=== PATIENT | female | born 2000 | race Caucasian/White ===

== ENCOUNTER 2025-03-10 07:33 | Emergency (ER) | payer BC, SELFPAY ==
[2025-03-10 07:35] VITALS: BP 135/80
[2025-03-10 07:37] VITALS: BP 135/80
[2025-03-10 08:00] VITALS: BP 131/79
--- NOTE | 2025-03-10 08:02 | ED.GENMED ---
History of Present Illness
General
Chief Complaint: Seizure
Source: patient and ambulance crew
Time Seen by Provider: 03/10/25 07:35
History of Present Illness
History of Present Illness:
25-year-old female with past medical history of seizure disorder, had been taken off of her Keppra medication by her neurologist in [place] a little over 1 year ago, presenting to the emergency department for evaluation after she had a witnessed
seizure at her gym earlier this morning. Patient states that she remembers doing curls and then next thing she knew she woke up to people standing over her. EMS reports that patient was postictal at time of their arrival, fingerstick glucose 87.
Patient states that she did feel little drowsy this morning but otherwise has been in her usual state of health. Last night did have some alcohol intake due to celebration of her recent home from living in [place]/going to college there. Patient
denies any fevers, chills, rigors, back pain, abdominal pain. There was noted left-sided frontal scalp trauma and patient does report about a 4 out of 10 headache. No other concerns presently.
Past History
Past History
ED Past Medical History: Seizures
ED Past Surgical History: Tonsilectomy and Other (breast Aug)
Social History
Tobacco: Non-smoker
Alcohol: Occasional
Drug: None
Personal: Single
Living: with family
Employment: Employed
Review of Systems
Review of Systems
All Other Systems: ROS reviewed and negative except as documented in HPI and ROS
Phy Exam
Physical Exam
Physical Exam:
GENERAL: Alert , in no apparent distress
HEAD: Left-sided frontal scalp contusion
EYE: pupils equal and reactive, 4 mm bilateral, EOMI
NECK: Supple, no midline tenderness
ENT: o/p clr, mmm. No tongue or intraoral laceration
CARDIAC: Tachycardic rate and rhythm, no murmur
LUNGS: Clear breath sounds bilaterally, no acute respiratory distress, no wheezes/rales/rhonchi
NEUROLOGICAL: Alert and oriented, no focal neuro deficits, moves all extremities, answers questions appropriately
SKIN: Warm and dry, skin intact.
MUSCULOSKELETAL: No edema, well perfused.
PSYCH: Normal and appropriate interaction.
Scores
Heart Failure Risk
Heart Failure Risk Score: Not Applicable
Heart Score for Chest Pain Patients
STEMI patient?: Not applicable
Withdrawal Assessment of Alcohol
Withdrawal Assessment Completed?: Not applicable
Course
Orders/Labs/Results
Orders:
Orders
03/10/25 07:42
Levetiracetam Injectable [Keppra] 1,000 mg IV NOW STA
03/10/25 07:43
Test Result ONCE
03/10/25 07:51
CT Head W/o Iv Contrast Urgent
Comment:
Reason For Exam: seizure, left frontal scalp trauma
03/10/25 07:52
Alcohol Urgent
CPK [Creatine Phosphokinase] Urgent
Complete Blood Count/With Diff Urgent
Comprehensive Metabolic Panel Urgent
HCG, Serum Qualitative Screen Urgent
Magnesium Urgent
03/10/25 08:19
Fosphenytoin 50 mg PE/ml [Cerebyx] 1,400 mg 0.9% Sodium Chloride 100 ml [Nss] 100 ml IV NOW
03/10/25 09:48
Lacosamide [Vimpat] 50 mg PO NOW STA
Abnormal Lab Results
03/10/25
07:52
MPV 10.5 H fL
(7.4-10.4)
Chloride 108 H mmol/L
(98-107)
Carbon Dioxide 19 L mmol/L
(22-30)
Albumin 5.1 H g/dl
(3.5-5.0)
03/10/25 07:52
03/10/25 07:52
Vital Signs
Initial and Last Documented VS:
Initial Vital Signs
Temp Pulse Resp BP Pulse Ox
98.7 F 114 16 135/80 97
03/10/25 07:35 03/10/25 07:35 03/10/25 07:35 03/10/25 07:35 03/10/25 07:35
Last Documented Vital Signs
Temp Pulse Resp BP Pulse Ox
98.2 F 100 16 119/67 98
03/10/25 10:13 03/10/25 10:13 03/10/25 10:13 03/10/25 10:13 03/10/25 10:13
MDM/Problems Addressed
Differential Diagnosis Includes:
Breakthrough seizure, alcohol use/withdrawal, electrolyte derangement, concussion, forehead contusion, intracranial bleeding
MDM/Problems Addressed:
25-year-old female presenting to the ER for evaluation after she reportedly had a seizure at the gym this morning witnessed by multiple gym goers. EMS reported patient postictal and route. Patient remains tachycardic here however no focal
neurologic deficits on my exam. Patient with history of seizure disorder, has been seizure-free for well over 1 year and has been off medications for well over 1 year. Patient reportedly was on Keppra in the past. Labs, CT imaging ordered.
Patient will likely need license revoked given her known history of seizure disorder and a breakthrough seizure. Will likely need neurology follow-up here given she does not have an established
Chronic conditions affecting care: Other (Seizure disorder)
Acute Exacerbation and/or Progression of Chronic Illness: Other (Seizure)
*Radiology
Radiology exam reviewed: radiology read reviewed
*Pulse Oximetry
Patient hypoxic: no
*Bunker Worker Interpretation
Rate: tachycardiac
Rhythm: sinus
*Critical Care Note
Total Time (30-74mins, 75-104mins- exclusive of procedures): Not Applicable
Patient Management
Discussion with other providers: Pressure Welder
Escalation/DeEscalation of care consider admission/obs:
March 10, 2025, 8 AM: Case discussed with neurology who agrees with workup plan. Patient does not want to go back onto Keppra due to side effects from the medication, neurology recommending 15 mg/kg IV bolus of fosphenytoin now and 300 mg Dilantin
at nighttime. I did verify with patient that she would be able to get follow-up blood within the next 3 days with primary care provider.
March 10, 2025 9AM: Case was rediscussed with neurology and pharmacy and given that the patient has had dental issues with Keppra in the past we were concerned that starting the patient on phenytoin would lead to similar issues as well as given
patient is female and of childbearing age or concern for any possible toxicity. Neurology was okay with us starting Vimpat 50 mg twice daily. I called patient's pharmacy and confirmed with them that this would be covered by the patient's
insurance and did not need prior authorization. Patient remained stable, seizure-free and in no acute distress. I provided them with information for neurology to follow-up with as an outpatient and patient also stated she would be able to
follow-up with primary care provider. Patient is aware of return precautions to the ER. Otherwise stable for discharge home.
ED Attending Note
-
Portions of this chart may have been created with voice recognition software.� Occasional wrong word or��sound alike� substitutions may have occurred due to the inherent limitations of voice recognition software.
Discharge Plan
Departure
Patient Disposition: Home (Routine Discharge)
Date of Disposition: 03/10/25
Time of Disposition: 09:58
Patient with high blood pressure during this ER visit?: No
Discharge Problem:
Seizure
Instructions: Seizures, Adult (DC)
Prescriptions:
New
lacosamide [Vimpat] 50 mg tablet
50 mg PO BID Qty: 60 0RF
No Action
prednisone 20 MG tablet
40 mg PO DAILY Qty: 8 0RF
famotidine 20 MG tablet
20 mg PO DAILY Qty: 10 0RF
diphenhydramine HCl [Banophen] 25 MG capsule
25 mg PO Q4HPRN PRN (Reason: allergic reaction) Qty: 20 0RF
epinephrine [EpiPen] 0.3 MG/0.3/SYRINGE auto-injector
0.3 mg IM PRN PRN (Reason: difficulty breathing) Qty: 1 0RF
albuterol sulfate [Albuterol Sulfate HFA] 18 GM HFA aerosol inhaler
18 gm inhalation Q4 Qty: 1 0RF
Referrals:
Wilson Johnson MD [Active] - (Neuro)
NONE,* [Family Provider] -
Interventions
Interventions:
*Risk Screen - Suicide Last Done: 03/10/25 07:35
*General Assessment Last Done: 03/10/25 07:35
*Neglect/Abuse Screening Last Done: 03/10/25 07:35
*ED- Fall Risk Assessment Last Done: 03/10/25 08:08
*ED COVID-19 Vaccine History Last Done: 03/10/25 07:35
*Nursing Disposition Last Done: 03/10/25 10:13
ED- Cardiac Assessment Last Done: 03/10/25 08:08
ED- Neurological Assessment Last Done: 03/10/25 08:08
ED- Pulmonary Assessment Last Done: 03/10/25 08:08
Discharge Date and Time
Discharge Date/Time: 03/10/25 10:10
Print Language: MAORI
[2025-03-10 08:12] LABS: % Basophils 0.9 % (0-2); % Eosinophils 0.5 % (0-6); % Immature Granulocytes 0.3 % (0-0.5); % Lymphocytes 42.4 % (20.5-51.1); % Monocytes 6.1 % (1.7-9.3); % Neutrophils 49.8 % (42.2-75.2); Absolute Basophils 0.1 10^3/uL (0-0.2); Absolute Lymphocytes 3.3 10^3/uL (1.2-3.4); Absolute Monocytes 0.5 10^3/uL (0.1-0.6); Absolute Neutrophils 3.8 10^3/uL (1.4-6.5); Hematocrit 44.7 % (37.0-47.0); Hemoglobin 15.1 g/dL (12.0-16.0); Mean Corp Hgb Conc. 33.8 g/dL (33.0-37.0); Mean Corpuscular Hgb 30.9 pg (27.0-31.0); Mean Corpuscular Volume 91.4 fL (81.0-99.0); Mean Platelet Volume 10.5 fL (7.4-10.4); Nucleated Red Blood Cells % 0 %; Platelet Count 225 10^3/uL (130-400); Red Blood Cell Count 4.89 10^6/uL (4.20-5.40); Red Cell Dist. Width 12.5 % (11.5-14.5); White Blood Cell Count 7.7 10^3/uL (4.8-10.8)
[2025-03-10 08:16] LABS: ALT (SGPT) 24 U/L (0-35); AST (SGOT) 24 U/L (14-36); Albumin 5.1 g/dl (3.5-5.0); Alkaline Phosphatase 40 U/L (38-126); Blood Urea Nitrogen 10 mg/dl (7-17); Calcium 9.5 mg/dl (8.4-10.2); Carbon Dioxide 19 mmol/L (22-30); Chloride 108 mmol/L (98-107); Estimated Creatinine Clearance > 125 ml/min; Glucose 96 mg/dl (70-99); Magnesium 1.9 mg/dl (1.6-2.3); Potassium 4.2 mmol/L (3.5-5.1); Sodium 144 mmol/L (135-145); Total Bilirubin 0.8 mg/dl (0.2-1.3); Total Protein 7.5 g/dl (6.3-8.2); eGFR > 60.00
[2025-03-10 08:22] LABS: HCG, Serum Qualitative Screen Negative
[2025-03-10 08:30] LABS: Alcohol 12 mg/dl; Creatine Phosphokinase 91 U/L (30-135)
[2025-03-10 09:00] VITALS: BP 129/80; BP 132/68
[2025-03-10] MEDS: VIMPAT 50 MG PO (09:59)
[2025-03-10 10:00] VITALS: BP 119/97
[2025-03-10 10:13] VITALS: BP 119/67
--- NOTE | 2025-03-10 10:13 | EDRN ---
Reviewed discharge instructions with patient. Verbalized understanding. Ambulated with steady gait to the lobby.
== END 2025-03-10 10:10 | disposition home or self-care (01) ==
LOC: EMR 07:33
PROVIDERS: Physician Assistant Medical; EMERGENCY PHYSICIAN Emergency Medicine
DX: G40.909 Epilepsy, unspecified, not intractable, without status epilepticus (principal); Z79.899 Other long term (current) drug therapy
CPT/HCPCS: 99284; 70450; 80053; 82077; 82550; 83735; 84703; 85025

== ENCOUNTER 2025-06-28 09:19 | Emergency (ER) | payer BC, SELFPAY ==
[2025-06-28 09:29] VITALS: BP 134/86
[2025-06-28 09:49] LABS: Hematocrit 43.3 % (37.0-47.0); Hemoglobin 14.5 g/dL (12.0-16.0); Mean Corp Hgb Conc. 33.5 g/dL (33.0-37.0); Mean Corpuscular Volume 92.5 fL (81.0-99.0); Nucleated Red Blood Cells % 0 %; Platelet Count 209 10^3/uL (130-400); Red Cell Dist. Width 11.7 % (11.5-14.5)
[2025-06-28 10:14] LABS: HCG, Serum Qualitative Screen Negative
[2025-06-28 10:18] LABS: ALT (SGPT) 19 U/L (0-35); AST (SGOT) 21 U/L (14-36); Albumin 4.8 g/dl (3.5-5.0); Alkaline Phosphatase 43 U/L (38-126); Blood Urea Nitrogen 16 mg/dl (7-17); Calcium 9.8 mg/dl (8.4-10.2); Carbon Dioxide 24 mmol/L (22-30); Chloride 108 mmol/L (98-107); Glucose 97 mg/dl (70-99); Potassium 4.7 mmol/L (3.5-5.1); Sodium 140 mmol/L (135-145); Total Protein 7.4 g/dl (6.3-8.2); eGFR > 60.00
[2025-06-28 11:51] VITALS: BP 125/63
[2025-06-28 11:54] VITALS: BP 125/63; BMI 31.1
[2025-06-28 12:00] VITALS: BP 112/63
--- NOTE | 2025-06-28 12:11 | ED.GENMED ---
History of Present Illness
<Tania Cha DO, Resident - Last Filed: 06/28/25 15:47>
General
Chief Complaint: Seizure
Source: patient
Time Seen by Provider: 06/28/25 11:41
History of Present Illness
History of Present Illness:
Patient is a 25-year-old female with past medical history of seizures presenting status post seizure. Patient had a seizure earlier this morning walking around a horse barn. Seizure was unwitnessed. Seizure lasted under 1 minute. Patient
experienced urinary incontinence, and now has generalized muscle aches, nausea and headache. Patient has abrasions on left cheek left elbow and hands. Not actively bleeding. Patient denies facial pain. Patient has had rare rare and occasional
seizures for the last 4 years, most recently in February. She now sees neurology at [place], and was put on lacosamide 50 mg in February. Patient's dose elevated to 100 mg in May. Based on blood work patient's dose was elevated again recently to 150
mg. First dose of 150 mg was last night.
Past History
<Tania Cha DO, Resident - Last Filed: 06/28/25 15:47>
Past History
ED Past Medical History: Seizures
ED Past Surgical History: Tonsilectomy and Other (breast Aug)
Social History
Tobacco: Non-smoker
Alcohol: Occasional
Drug: None
Personal: Single
Living: with family
Employment: Employed
Review of Systems
<Tania Cha DO, Resident - Last Filed: 06/28/25 15:47>
Review of Systems
Allergies reviewed?: Yes
Constitutional: Reports no symptoms
EENT: Reports no symptoms
Respiratory: Reports no symptoms
Cardiac: Reports no symptoms
Phy Exam
<Tania Cha DO, Resident - Last Filed: 06/28/25 15:47>
General Physical Exam
General Presentation: no apparent distress
General age: appears stated age
General Skin: warm and dry
General Habitus: normal
General Mental: alert
Cardiovascular Exam
Cardiovascular Exam: regular rate/rhythm
Heart Sounds: normal
Pulmonary Exam
Pulmonary Exam: lungs clear, no respiratory distress, no crackles and no wheezing
Gastrointestinal Exam
Gastrointestinal Exam: normal bowel sounds
Neurological Exam
Neurological Exam: alert and oriented x3
Skin Exam
Skin Exam: normal color, warm/dry and other (Abrasions noted on patient's left cheek left elbow and bilateral hands. Not actively bleeding.)
Psychiatric Exam
Psychiatric Exam: normal mood/affect
Course
<Tania Cha DO, Resident - Last Filed: 06/28/25 15:47>
Orders/Labs/Results
Orders:
Orders
06/28/25 09:35
Test Result ONCE
06/28/25 09:42
Complete Blood Count/With Diff Urgent
Comprehensive Metabolic Panel Urgent
HCG, Serum Qualitative Screen Urgent
Comment: Notify provider if positive test present
Abnormal Lab Results
06/28/25
09:42
Chloride 108 H mmol/L
(98-107)
06/28/25 09:42
06/28/25 09:42
Vital Signs
Initial and Last Documented VS:
Initial Vital Signs
Temp Pulse Resp BP Pulse Ox
98.5 F 93 16 134/86 98
06/28/25 09:29 06/28/25 09:29 06/28/25 09:29 06/28/25 09:29 06/28/25 09:29
Last Documented Vital Signs
Temp Pulse Resp BP Pulse Ox
98.5 F 79 17 112/63 99
06/28/25 09:29 06/28/25 12:00 06/28/25 12:00 06/28/25 12:00 06/28/25 12:18
<Janeth Harman DO - Last Filed: 06/28/25 13:46>
Orders/Labs/Results
Orders:
Orders
06/28/25 09:35
Test Result ONCE
06/28/25 09:42
Complete Blood Count/With Diff Urgent
Comprehensive Metabolic Panel Urgent
HCG, Serum Qualitative Screen Urgent
Comment: Notify provider if positive test present
Abnormal Lab Results
06/28/25
09:42
Chloride 108 H mmol/L
(98-107)
06/28/25 09:42
06/28/25 09:42
Vital Signs
Initial and Last Documented VS:
Initial Vital Signs
Temp Pulse Resp BP Pulse Ox
98.5 F 93 16 134/86 98
06/28/25 09:29 06/28/25 09:29 06/28/25 09:29 06/28/25 09:29 06/28/25 09:29
Last Documented Vital Signs
Temp Pulse Resp BP Pulse Ox
98.5 F 79 17 112/63 99
06/28/25 09:29 06/28/25 12:00 06/28/25 12:00 06/28/25 12:00 06/28/25 12:18
<Tania Cha DO, Resident - Last Filed: 06/28/25 15:47>
MDM/Problems Addressed
Differential Diagnosis Includes:
epilepsy
MDM/Problems Addressed:
Do not feel it necessary to do CT face. Abrasions not actively bleeding. Will consult with patient's neurologist Dr. Tony regarding starting the patient on the 200 mg dosage of lacosamide today.
13:50 - Spoke with Dr. Tony via TT. She recommends starting the 200mg BID dose today. Patient has enough of her lacosamide to start 200 mg BID until her appointment with Dr. Tony on 07/05. test negative. Patient ready for discharge
<Tania Cha DO, Resident - Last Filed: 06/28/25 15:47>
*Pulse Oximetry
SaO2: 99
Oxygen Mode of Delivery: Room air
Patient hypoxic: no
*Critical Care Note
Total Time (30-74mins, 75-104mins- exclusive of procedures): Not Applicable
ED Attending Note
<Tania Cha DO, Resident - Last Filed: 06/28/25 15:47>
-
Portions of this chart may have been created with voice recognition software.� Occasional wrong word or��sound alike� substitutions may have occurred due to the inherent limitations of voice recognition software.
<Janeth Harman DO - Last Filed: 06/28/25 13:46>
ED Attending Note
Patient seen and examined by attending physician: Yes
I performed the substantive portion of visit, reviewed & personally made and approve the management plan that is documented in note by myself or YU.: Yes
I performed a history and physical exam of patient and discussed management with resident, I reviewed resident's note and agree with documented findings and plan of care.: Yes
ED Attending Note:
25-year-old female with history of seizure disorder presenting to the emergency department for seizure prior to arrival. Patient reports that she has been having seizures for the past several years, however been increasing in frequency in the past
year. Last seizure was in February. Patient is on lacosamide, had been on 50 mg twice daily. In May was 100 twice daily, however levels were still low so recently increased to 150 mg twice daily with first dose being last evening. Patient had
seizure prior to arrival, unwitnessed. Fall to the ground and strike her face, left elbow, hands, left knee. Urinary incontinence. Does note mild headache after her seizure and some generalized fatigue. Denies any recent fever.
Vital signs on arrival are normal. On exam patient is resting comfortably, alert, oriented. Mild signs of trauma with abrasions to the left side of the face, left elbow, left knee, fingers. Range of motion intact to all extremities without
significant deformity or swelling. No midline cervical neck tenderness. No additional focal neurologic deficits on exam. Ultimately suspect breakthrough seizure in a patient with known seizure disorder. Patient's labs are unremarkable,
including negative . Will try and reach out to patient's neurologist, Dr. Tony, however recent adjustment was just made last night, so likely recommendation to remain on the 150 mg twice daily. Do not feel patient requires any advanced
workup or imaging at this time.
13:45 -did discuss with neurologist, recommending 200 mg twice daily with outpatient follow-up. Patient has an appointment on the . Feel stable for discharge. Return precautions discussed
Discharge Plan
Departure
Patient Disposition: Home (Routine Discharge)
Date of Disposition: 06/28/25
Time of Disposition: 13:57
Patient with high blood pressure during this ER visit?: Yes
Discharge Problem:
Epilepsy
Instructions: Seizures, Adult (DC), BLOOD PRESSURE
Prescriptions:
No Action
prednisone 20 MG tablet
40 mg PO DAILY Qty: 8 0RF
famotidine 20 MG tablet
20 mg PO DAILY Qty: 10 0RF
diphenhydramine HCl [Banophen] 25 MG capsule
25 mg PO Q4HPRN PRN (Reason: allergic reaction) Qty: 20 0RF
epinephrine [EpiPen] 0.3 MG/0.3/SYRINGE auto-injector
0.3 mg IM PRN PRN (Reason: difficulty breathing) Qty: 1 0RF
albuterol sulfate [Albuterol Sulfate HFA] 18 GM HFA aerosol inhaler
18 gm inhalation Q4 Qty: 1 0RF
lacosamide [Vimpat] 50 mg tablet
50 mg PO BID Qty: 60 0RF
Referrals:
Dalton Byrd MD [Family Provider, Family Practice]
Matias Tony MD [Active, Neurology]
Activity Restrictions/Additional Instructions:
We spoke with your neurologist Dr. Tony who recommends starting lacosamide 200 mg BID dosage. Please follow-up with her at your 07/05 appointment. Please return to the ED with any further seizures or worsening symptoms prior to your follow-up
appointment.
Interventions
Interventions:
*Risk Screen - Suicide Last Done: 06/28/25 09:29
*General Assessment Last Done: 06/28/25 09:29
*Neglect/Abuse Screening Last Done: 06/28/25 09:29
*ED- Fall Risk Assessment Last Done: 06/28/25 14:19
*ED COVID-19 Vaccine History Last Done: 06/28/25 11:54
*Nursing Disposition Last Done: 06/28/25 14:19
ED- Cardiac Assessment Last Done: 06/28/25 11:54
ED- Neurological Assessment Last Done: 06/28/25 11:54
ED- Pulmonary Assessment Last Done: 06/28/25 11:54
Discharge Date and Time
Discharge Date/Time: 06/28/25 14:19
Print Language: ITALIAN
== END 2025-06-28 14:19 | disposition home or self-care (01) ==
LOC: EMR 09:19
PROVIDERS: EMERGENCY PHYSICIAN Student in an Organized Health Care Education/Training Program; FAMILY PHYSICIAN Family Medicine
DX: G40.909 Epilepsy, unspecified, not intractable, without status epilepticus (principal); S00.81XA Abrasion of other part of head, initial encounter; S50.312A Abrasion of left elbow, initial encounter; S60.512A Abrasion of left hand, initial encounter; S60.511A Abrasion of right hand, initial encounter; W19.XXXA Unspecified fall, initial encounter
CPT/HCPCS: 99283; 80053; 84703; 85025

== ENCOUNTER → 2025-08-08 10:51 | Outpatient (REF) | payer BC, SELFPAY | LOC: MRI 3T 10:51 | PROVIDERS: ATTENDING PHYSICIAN Specialist; FAMILY PHYSICIAN Family Medicine | DX: G40.209 Localization-related (focal) (partial) symptomatic epilepsy and epileptic syndromes with complex partial seizures, not intractable, without status epilepticus (principal) | CPT/HCPCS: 70553; A9575 ==

== ENCOUNTER 2025-08-27 10:12 | Emergency (ER) | payer BC, SELFPAY ==
[2025-08-27 10:15] VITALS: BP 130/81
[2025-08-27 10:17] VITALS: BP 130/81
[2025-08-27 10:22] VITALS: BMI 28.9
[2025-08-27 10:33] LABS: Hematocrit 42.2 % (37.0-47.0); Hemoglobin 14.0 g/dL (12.0-16.0); Mean Corp Hgb Conc. 33.2 g/dL (33.0-37.0); Mean Corpuscular Volume 92.7 fL (81.0-99.0); Nucleated Red Blood Cells % 0 %; Platelet Count 194 10^3/uL (130-400); Red Cell Dist. Width 11.9 % (11.5-14.5)
[2025-08-27 10:47] LABS: HCG, Serum Qualitative Screen Negative
[2025-08-27 10:54] LABS: ALT (SGPT) 18 U/L (0-35); AST (SGOT) 19 U/L (14-36); Albumin 4.5 g/dl (3.5-5.0); Alkaline Phosphatase 50 U/L (38-126); Blood Urea Nitrogen 12 mg/dl (7-17); Calcium 9.3 mg/dl (8.4-10.2); Carbon Dioxide 28 mmol/L (22-30); Chloride 105 mmol/L (98-107); Estimated Creatinine Clearance > 125 ml/min; Glucose 117 mg/dl (70-99); Potassium 5.0 mmol/L (3.5-5.1); Sodium 136 mmol/L (135-145); Total Protein 7.0 g/dl (6.3-8.2); eGFR > 60.00
--- NOTE | 2025-08-27 10:54 | ED.GENMED ---
History of Present Illness
General
Chief Complaint: Seizure
Source: patient and family (Mother)
Exam Limitations: none
Time Seen by Provider: 08/27/25 10:16
History of Present Illness
History of Present Illness:
25-year-old female grand mal seizure while at a car show. Her father somewhat called her and she landed on her father. Complaining of some headaches which is typical after a seizure, left elbow and bilateral knee pain. No neck pain no other
trauma. She is on Vimpat 200 mg twice a day. This has been increased since the summer from 50 twice daily up till this dosing. She is followed by neurology locally and has also been seen at [facility].
Past History
Past History
ED Past Medical History: Seizures
ED Past Surgical History: Tonsilectomy and Other (breast Aug)
Social History
Tobacco: Non-smoker
Alcohol: Occasional
Drug: None
Personal: Single
Living: with family
Employment: Employed
Review of Systems
Review of Systems
All Other Systems: Not applicable
Respiratory: Reports no symptoms
Cardiac: Reports no symptoms
Phy Exam
Physical Exam
Physical Exam:
TRAUMA EXAM:
VITAL SIGNS: Vital signs reviewed, cooperative
DISTRESS: No active disease
EYES: Pupils reactive, no orbital trauma
NOSE: No deformity or epistaxis
FACE AND SCALP: No scalp or facial trauma, external canals no blood
NECK: Supple nontender
BACK: Back nontender, pelvis stable to compression
RESPIRATORY: No distress, breath sounds normal, no tender chest wall
CARDIAC: No murmur, pulses equal and strong
ABDOMEN: Soft nontender bowel sounds normal
SKIN: Abrasions over the left elbow and bilateral patellas
EXTREMITIES: Tenderness over both patellas. Able to straight leg raise. Knee stable. No laxity. Some tenderness over the olecranon. All joints are stable. Distal motor or sensory neurovascular intact.
NEUROLOGICAL: Alert, oriented, no motor deficits
PSYCH: Mood affect normal
Course
Orders/Labs/Results
Orders:
Orders
08/27/25 10:16
Electrocardiogram (*1) Stat
Reason for Study: Other
Other Reason for Exam: neuro symptoms
Cardiac Monitoring- Treatment ONCE
EKG- Treatment ONCE
IV Insert/Care/Rem.- Treatment PRN
Test Result ONCE
08/27/25 10:23
Complete Blood Count/With Diff Urgent
Comprehensive Metabolic Panel Urgent
HCG, Serum Qualitative Screen Urgent
08/27/25 10:53
Elbow, Left [CR Elbow - Left Min 3 Views ] Urgent
Comment:
Reason For Exam: Trauma
Knee, Left 4 or More Views [CR Knee - Left 4 Or More View*] Urgent
Comment:
Reason For Exam: Trauma
Knee, Right 4 or More Views [CR Knee- Right 4 Or More View*] Urgent
Comment:
Reason For Exam: Trauma
08/27/25 10:56
Acetaminophen [Tylenol] 650 mg PO NOW STA
Abnormal Lab Results
08/27/25
10:23
MPV 10.5 H fL
(7.4-10.4)
Glucose 117 H mg/dl
(70-99)
08/27/25 10:23
08/27/25 10:23
Vital Signs
Initial and Last Documented VS:
Initial Vital Signs
Temp Pulse Resp BP Pulse Ox
98.8 F 104 19 130/81 98
08/27/25 10:15 08/27/25 10:15 08/27/25 10:15 08/27/25 10:15 08/27/25 10:15
Last Documented Vital Signs
Temp Pulse Resp BP Pulse Ox
98.2 F 92 16 110/64 99
08/27/25 13:26 08/27/25 13:26 08/27/25 13:26 08/27/25 13:26 08/27/25 13:26
MDM/Problems Addressed
Differential Diagnosis Includes:
Recurrent seizure. Medically stable. Will check electrolytes and EKG. Not describing syncope. As for any trauma related to the fall. It does not sound like she hit her head she does have a headache but this is typical postseizure. Will x-ray
the contusion/abrasions although low suspicion for fractures. Will talk to neurology about any further change in dosing.
*Pulse Oximetry
SaO2: 98
Oxygen Mode of Delivery: Room air
Patient hypoxic: no
*EKG
Interpreted by ED Provider?: Yes
Interpretation: normal
Comparison EKG: no comparison EKG present
Heart Rate: 100
Rate: tachycardiac
Rhythm: sinus
[place]: normal axis
Interval: normal interval
QRS Pattern: normal QRS
Ischemia: no ischemia
*Critical Care Note
Total Time (30-74mins, 75-104mins- exclusive of procedures): Not Applicable
Data Reviewed
Review of Other/Old Records Reveals: Labs, Records, Radiology Studies (Normal MRI July 2025) and Testing
Update Note
Update Note:
Patient remained stable and nontoxic. She has some posterior headache but this is typical. No trauma. Again nothing to support reason for radiologic testing. Tried to contact her covering neurologist to no avail. Will hold on any medication
adjustments until the family and patient can talk to their primary neurologist. They are comfortable with this approach
They were given a prescription for nasal Valium. Patient ambulated well out of the ER
ED Attending Note
-
Portions of this chart may have been created with voice recognition software.� Occasional wrong word or��sound alike� substitutions may have occurred due to the inherent limitations of voice recognition software.
Discharge Plan
Departure
Patient Disposition: Home (Routine Discharge)
Date of Disposition: 08/27/25
Time of Disposition: 13:16
Patient with high blood pressure during this ER visit?: No
Discharge Problem:
Grand mal seizure, History of seizure disorder
Instructions: Seizures, Adult (DC)
Prescriptions:
New
Valtoco 10 mg/spray (0.1 mL) spray,non-aerosol
10 mg intranasal (ALT) ONCE PRN (Reason: prolonged seizure) Qty: 5 0RF
No Action
prednisone 20 MG tablet
40 mg PO DAILY Qty: 8 0RF
famotidine 20 MG tablet
20 mg PO DAILY Qty: 10 0RF
diphenhydramine HCl [Banophen] 25 MG capsule
25 mg PO Q4HPRN PRN (Reason: allergic reaction) Qty: 20 0RF
epinephrine [EpiPen] 0.3 MG/0.3/SYRINGE auto-injector
0.3 mg IM PRN PRN (Reason: difficulty breathing) Qty: 1 0RF
albuterol sulfate [Albuterol Sulfate HFA] 18 GM HFA aerosol inhaler
18 gm inhalation Q4 Qty: 1 0RF
lacosamide [Vimpat] 50 mg tablet
50 mg PO BID Qty: 60 0RF
Referrals:
Dalton Byrd MD [Family Provider, [facility]] - Follow up in 2-3 days
Activity Restrictions/Additional Instructions:
Call your neurologist first thing Friday morning for close follow-up and discussion of any medication adjustments
Interventions
Interventions:
*Risk Screen - Suicide Last Done: 08/27/25 10:15
*General Assessment Last Done: 08/27/25 10:15
*Neglect/Abuse Screening Last Done: 08/27/25 10:15
*Nursing Disposition Last Done: 08/27/25 13:28
ED- Cardiac Assessment Last Done: 08/27/25 11:26
ED- Neurological Assessment Last Done: 08/27/25 11:26
ED- Pulmonary Assessment Last Done: 08/27/25 11:26
Discharge Date and Time
Discharge Date/Time: 08/27/25 13:29
Print Language: HEBREW
[2025-08-27 11:00] VITALS: BP 112/68
[2025-08-27] MEDS: TYLENOL 650 MG PO (11:12)
[2025-08-27 13:26] VITALS: BP 110/64
== END 2025-08-27 13:29 | disposition home or self-care (01) ==
LOC: EMR 10:12
PROVIDERS: EMERGENCY PHYSICIAN Emergency Medicine; FAMILY PHYSICIAN Family Medicine
DX: G40.409 Other generalized epilepsy and epileptic syndromes, not intractable, without status epilepticus (principal); Z79.899 Other long term (current) drug therapy
CPT/HCPCS: 99283; 73080; 73564; 80053; 84703; 85025; 93005